=== PATIENT | female | born 1970 | race Caucasian/White ===

== ENCOUNTER 2022-02-14 09:45 | Day surgery (SDC) | payer MEDICARE ==
[~2022-02-14] VITALS: Ht 165.1 cm; Wt 80.3 kg
[2022-02-14] MEDS ORDERED: CLON0.5T4 PO (12:21)
[2022-02-14] MEDS ORDERED: LOSA100T58 PO (12:24)
[2022-02-14] MEDS ORDERED: APIX2.5T PO (12:25)
[2022-02-14] MEDS ORDERED: DULO60CA64 PO (12:26)
[2022-02-14] MEDS ORDERED: AMLO-257 PO (12:27)
[2022-02-14] MEDS ORDERED: CARV12.511 PO (12:28)
[2022-02-14] MEDS ORDERED: EVOL140S2 SQ (12:32)
== END 2022-02-14 13:15 | disposition home or self-care (01) ==
LOC: DAH 09:45 → ENDO 09:45 → EDSTATUS 12:50 → ENDO 13:15
PROVIDERS: ATTEND Internal Medicine Gastroenterology
DX: R13.10 Dysphagia, unspecified (principal); Z20.822 Contact with and (suspected) exposure to COVID-19; Z86.010 Personal history of colon polyps; Z80.0 Family history of malignant neoplasm of digestive organs; Z79.899 Other long term (current) drug therapy; Z98.890 Other specified postprocedural states; Z53.8 Procedure and treatment not carried out for other reasons
CPT/HCPCS: 87635; C9803